=== PATIENT | female | born 1965 | race Caucasian/White ===

== ENCOUNTER → 2016-07-14 | Outpatient (CLI) | payer OTHER ==
--- NOTE | 2016-07-14 15:11 | REPMRS ---
Patient History The patient states she had a clinical breast exam in 06/2016. Family history of unknown cancer in sister at age 54 and breast cancer in sister at age 59. Digital Woman Screen Mammo: July 14, 2016 - Exam #: [id number] Bilateral CC and MLO view(s) were taken. Technologist: Laney Haynes, Technologist Prior study comparison: May 06, 2015, digital woman screen mammo performed at [facility]. May 01, 2014, digital woman screen mammo performed at [facility]. April 09, 2013, digital woman screen mammo performed at [facility]. FINDINGS: There are scattered fibroglandular densities. There has been no change in the appearance of the mammogram from the prior studies. There is a mild amount of scattered fibroglandular density which is fairly symmetric. There is no interval development of dominant mass, architectural distortion, or clustered microcalcification suggestive of malignancy. ASSESSMENT: BI-RADS/ACR category 1 mammogram. Negative. Recommendation Routine screening mammogram in 1 year (for women over age 40). This mammogram was interpreted with the aid of an FDA-approved computer-aided dectection system. Electronically Signed By: Yuan Stephen MD 07/14/16 [id number]
== END ==
LOC: M WHC 14:08
PROVIDERS: ATTEND Nurse Practitioner Women's Health
DX: Z12.31 Encounter for screening mammogram for malignant neoplasm of breast (principal)

== ENCOUNTER → 2016-07-14 | Outpatient (REF) | payer OTHER | LOC: M SFHCWAGY 16:14 | PROVIDERS: ATTEND Nurse Practitioner Women's Health | DX: Z12.31 Encounter for screening mammogram for malignant neoplasm of breast (principal); Z12.4 Encounter for screening for malignant neoplasm of cervix ==

== ENCOUNTER → 2016-10-05 | Outpatient (REF) | LOC: M LAB 16:11 | PROVIDERS: ATTEND Nurse Practitioner Adult Health | DX: Z02.1 Encounter for pre-employment examination (principal) ==

== ENCOUNTER → 2017-02-17 | Outpatient (CLI) | payer BC ==
--- NOTE | 2017-02-17 16:18 | REP ---
RIGHT FOOT, FOUR VIEWS: HISTORY: Plantar fascial fibromatosis. There is no acute fracture or dislocation. The joint spaces are normal in appearance. A small osteophyte is present on the inferior calcaneus. IMPRESSION: There is no acute fracture or dislocation. Signed by Luis Ramon MD 02/17/2017 04:26 P
== END ==
LOC: M ADAMS 09:57
PROVIDERS: ATTEND Physician Assistant Medical
DX: M72.2 Plantar fascial fibromatosis (principal)

== ENCOUNTER → 2017-07-12 | Outpatient (REF) | payer BC | LOC: M SFHCWAGY 15:17 | DX: Z12.4 Encounter for screening for malignant neoplasm of cervix (principal) | CPT/HCPCS: G0123 ==

== ENCOUNTER → 2017-07-12 | Outpatient (CLI) | payer BC | LOC: M WHC 14:57 | DX: Z12.31 Encounter for screening mammogram for malignant neoplasm of breast (principal) | CPT/HCPCS: 77067 ==

== ENCOUNTER 2018-01-16 12:36 | Emergency (ER) | payer OTHER, BC ==
[2018-01-16] MEDS: IBUPROFEN 600 MG TAB PO (13:00)
== END 2018-01-16 13:44 | disposition home or self-care (01) ==
LOC: M ED 12:36
DX: S90.32XA Contusion of left foot, initial encounter (principal); W20.8XXA Other cause of strike by thrown, projected or falling object, initial encounter; Y92.59 Other trade areas as the place of occurrence of the external cause; Y99.0 Civilian activity done for income or pay
CPT/HCPCS: 73630

== ENCOUNTER → 2018-08-27 | Outpatient (CLI) | payer BC ==
--- NOTE | 2018-08-27 17:26 | REPMRS ---
Patient History The patient states she had a clinical breast exam in 08/2018. Family history of breast cancer at age 59 in sister. No Hormone Replacement Therapy Digital Woman Screen Mammo: August 27, 2018 - Exam #: [id number] Bilateral CC and MLO view(s) were taken. Technologist: Laney Haynes, Technologist Prior study comparison: July 12, 2017, digital woman screen mammo performed at [facility]. July 14, 2016, digital woman screen mammo performed at [facility]. FINDINGS: There are scattered fibroglandular densities. There has been no change in the appearance of the mammogram from the prior studies. There is a mild amount of residual fibroglandular tissue which is fairly symmetric. There is no interval development of dominant mass, architectural distortion, or clustered microcalcification suggestive of malignancy. There are scattered, small, benign calcifications of doubtful clinical significance. Scattered lymph nodes are seen in the right axilla. There is a benign appearing intramammary node in the upper outer quadrant of the right breast. 3-D tomosynthesis shows no additional findings. No significant changes when compared with prior studies. Assessment: BI-RADS/ACR category 2 mammogram. Benign Findings. Recommendation Routine screening mammogram in 1 year (for women over age 40). This mammogram was interpreted with the aid of an FDA-approved computer-aided dectection system. A. Negative x-ray reports should not delay biopsy if a dominant or clinically suspicious mass is present. B. Four to eight percent of cancers are not identified by mammography. C. Adenosis and dense breast may obscure an underlying neoplasm. With Tyrer Cuzick lifetime risk assessment of 20.1% patient should be considered for additional screening with breast MRI which is suggested for patients with risk assessments in the range of 20-25% or greater. Electronically Signed By: Alexandre Robison MD 08/27/18 [id number]
== END ==
LOC: M WHC 10:32
PROVIDERS: ATTEND Nurse Practitioner Women's Health
DX: Z12.31 Encounter for screening mammogram for malignant neoplasm of breast (principal); Z80.3 Family history of malignant neoplasm of breast

== ENCOUNTER → 2018-08-27 | Outpatient (REF) | payer BC ==
[2018-08-29 14:14] LABS: HPV HYBRID CAPTURE II Negative (Negative)
== END ==
LOC: M SFHCWAGY 10:49
PROVIDERS: ATTEND Nurse Practitioner Women's Health
DX: Z12.4 Encounter for screening for malignant neoplasm of cervix (principal)
CPT/HCPCS: 87624; G0123

== ENCOUNTER → 2019-09-02 | Outpatient (CLI) | payer BC ==
--- NOTE | 2019-09-02 10:11 | REPMRS ---
Patient History The patient states she had a clinical breast exam in August 2019. Family history of breast cancer at age 59 in sister, cervical cancer at age 56 in sister. No Hormone Replacement Therapy 3D TOMOSYNTHESIS WAS PERFORMED. [facility] lifetime risk for breast cancer is 19.7%. Digital Woman Screen Mammo: September 02, 2019 - Exam #: [id number] Bilateral CC and MLO view(s) were taken. Technologist: Marsha Kumar, Technologist Prior study comparison: August 27, 2018, bilateral digital woman screen mammo performed at [facility]. July 12, 2017, digital woman screen mammo performed at [facility]. FINDINGS: The breast tissue is heterogeneously dense. This may lower the sensitivity of mammography. There has been no change in the appearance of the mammogram from the prior studies. There is a moderate amount of residual fibroglandular tissue which is fairly symmetric. There is no interval development of dominant mass, areas of architectural distortion, or clustered microcalcification typical of malignancy. Assessment: BI-RADS/ACR category 1 mammogram. Negative Mammogram. Recommendation Routine screening mammogram in 1 year (for women over age 40). This mammogram was interpreted with the aid of an FDA-approved computer-aided dectection system. Electronically Signed By: Miguel Mcfadden MD 09/02/19 [id number]
== END ==
LOC: M WHC 09:20
PROVIDERS: ATTEND Nurse Practitioner Women's Health
DX: Z12.31 Encounter for screening mammogram for malignant neoplasm of breast (principal); Z80.3 Family history of malignant neoplasm of breast

== ENCOUNTER → 2019-09-02 | Outpatient (REF) | payer BC | LOC: M SFHCWAGY 13:28 | PROVIDERS: ATTEND Nurse Practitioner Women's Health | DX: Z12.4 Encounter for screening for malignant neoplasm of cervix (principal) ==

== ENCOUNTER 2020-01-02 12:27 | Emergency (ER) | payer BC, OTHER ==
[~2020-01-02] VITALS: Ht 152.4 cm; Wt 74.1 kg
[2020-01-02 13:55] VITALS: BP 134/65
--- NOTE | 2020-01-02 15:28 | REP ---
RIGHT KNEE, FIVE VIEWS: Five views of the right knee performed. There is no acute fracture or dislocation. There is mild diffuse joint space narrowing with subchondral sclerosis and mild spurring. I do not see a significant joint effusion. IMPRESSION: Degenerative changes. No evidence of fracture or dislocation. Electronically Signed by Miguel Mcfadden MD 01/05/2020 11:43 P
== END 2020-01-02 13:59 | disposition home or self-care (01) ==
LOC: M ED 12:27
DX: M25.561 Pain in right knee (principal)

== ENCOUNTER → 2020-06-20 | Outpatient (CLI) | payer SELFPAY | LOC: M LABSMTC 08:21 | PROVIDERS: ATTEND Pediatrics | DX: Z20.828 Contact with and (suspected) exposure to other viral communicable diseases (principal) ==

== ENCOUNTER → 2020-09-10 | Outpatient (CLI) | payer OTHER ==
--- NOTE | 2020-09-10 17:05 | REPMRS ---
Patient History The patient states she had a clinical breast exam in 08/2020 Patient is postmenopausal. Family history of breast cancer at age 59 in sister, unknown cancer at age 56 in sister. No Hormone Replacement Therapy Digital Woman Screen Mammo: September 10, 2020 - Exam #: [id number] Bilateral CC and MLO view(s) were taken. Technologist: Mariann Carson, Technologist Prior study comparison: September 02, 2019, bilateral digital woman screen mammo performed at [facility]. August 27, 2018, bilateral digital woman screen mammo performed at [facility]. July 12, 2017, digital woman screen mammo performed at [facility]. FINDINGS: There are scattered fibroglandular densities. The Volpara volumetric breast density category is:B. There is a stable intramammary lymph node visible in each breast unchanged. There has been no change in the appearance of the mammogram from the prior studies. There is a mild amount of scattered fibroglandular density which is fairly symmetric. There is no interval development of dominant mass, architectural distortion, or grouped microcalcification suggestive of malignancy. 3-D tomosynthesis shows no additional findings. Assessment: BI-RADS/ACR category 2 mammogram. Benign Findings. Recommendation Breast MRI of both breasts in 6 months. Routine screening mammogram of both breasts in 1 year (for women over age 40). This patient's [facility] Lifetime Breast Cancer Risk is estimated at 20.7 %. Annual screening Breast MRI scanniing is recommended for patient's whose lifetime risk assessment is over 20%. This mammogram was interpreted with the aid of an FDA-approved computer-aided dectection system. Electronically Signed By: Yuan Stephen MD 09/10/20 [id number]
== END ==
LOC: M WHC 15:11
PROVIDERS: ATTEND Nurse Practitioner Women's Health
DX: Z12.31 Encounter for screening mammogram for malignant neoplasm of breast (principal); Z80.3 Family history of malignant neoplasm of breast

== ENCOUNTER → 2020-09-10 | Outpatient (REF) | payer OTHER | LOC: M SFHCWAGY 10:05 | PROVIDERS: ATTEND Nurse Practitioner Women's Health | DX: Z12.4 Encounter for screening for malignant neoplasm of cervix (principal); Z77.9 Other contact with and (suspected) exposures hazardous to health | CPT/HCPCS: 87624; G0123 ==

== ENCOUNTER → 2020-09-24 | Outpatient (CLI) | payer OTHER ==
--- NOTE | 2020-09-24 11:53 | REP ---
INDICATION: PAIN. COMPARISON: Right knee, 01/02/2020. TECHNIQUE: There are four views of each knee FINDINGS: Right knee: There is patellofemoral osteoarthritis with significant narrowing of the lateral compartment and slight lateral subluxation of the patella. The mediolateral compartments are unremarkable. There is no effusion. Mineralization is normal. There are no calcifications. Left knee: There is patellofemoral osteoarthritis with significant narrowing of the lateral compartment and slight lateral subluxation of the patella. The medial and lateral compartments are unremarkable. There is no effusion. Mineralization is normal. There are no calcifications. IMPRESSION: Bilateral patellofemoral osteoarthritis. <Electronically signed by Miguel Dacosta > 09/24/20 [id number]
--- NOTE | 2020-09-24 11:56 | REP ---
INDICATION: PAIN. COMPARISON: None. TECHNIQUE: Standing AP and lateral views: FINDINGS: Mineralization is normal. The mortise is symmetric. There is no joint space narrowing. There is no plain film evidence of tarsal coalition. No joint effusion. There is a calcaneal plantar spur. IMPRESSION: Essentially negative AP and lateral standing views of the right ankle. <Electronically signed by Miguel Dacosta > 09/24/20 [id number]
--- NOTE | 2020-09-24 11:58 | REP ---
INDICATION: PAIN. COMPARISON: 10/31/2019. TECHNIQUE: There are three views. FINDINGS: Mineralization and joint spaces are unremarkable. There are no calcifications or foreign bodies. No fracture or dislocation. There is a calcaneal plantar spur, unchanged. IMPRESSION: Calcaneal plantar spur, otherwise negative right foot. <Electronically signed by Miguel Dacosta > 09/24/20 [id number]
== END ==
LOC: M SOG 10:36
PROVIDERS: ATTEND Orthopaedic Surgery Sports Medicine
DX: M17.0 Bilateral primary osteoarthritis of knee (principal); M21.41 Flat foot [pes planus] (acquired), right foot; M77.31 Calcaneal spur, right foot

== ENCOUNTER → 2021-02-05 | Outpatient (CLI) | payer OTHER ==
[~2021-02-05] MED LIST: ECOT81TA5 PO; PROBCAP14 PO
== END ==
LOC: M LABSMTC 12:46
PROVIDERS: ATTEND Anesthesiology
DX: Z01.812 Encounter for preprocedural laboratory examination (principal); Z11.52 Encounter for screening for COVID-19

== ENCOUNTER → 2021-03-24 | Outpatient (CLI) | payer OTHER | LOC: M LABSMTC 09:38 | PROVIDERS: ATTEND Anesthesiology | DX: Z01.812 Encounter for preprocedural laboratory examination (principal); Z20.822 Contact with and (suspected) exposure to COVID-19 ==

== ENCOUNTER 2021-03-29 12:06 | Day surgery (SDC) | payer OTHER ==
[~2021-03-29] VITALS: Ht 152.4 cm; Wt 73.0 kg
[~2021-03-29 12:06] MED LIST changes: +NS 1,000 ML IV ONE
[2021-03-29] MEDS ORDERED: propofoL 200 MG/20 ML VIAL As Ordered ONE (13:35)
--- NOTE | 2021-03-29 13:48 | ROOR ---
Patient Name: Tash Salhe Procedure Date: 03/29/2021 1:26 PM Date of : 1965 Age: 55 Room: [facility] Gender: Female Note Status: Finalized Procedure: Total Colonoscopy to Cecum Indications: Colon cancer screening in patient at increased risk: Family history of 1st-degree relative with colon polyps, Last colonoscopy: 2015 Providers: Aaron Buckley MD Referring MD: SONJA BETANCUR DO Requesting Provider: Medicines: Monitored Anesthesia Care Complications: No immediate complications. Procedure: Pre-Anesthesia Assessment: - The heart rate, respiratory rate, oxygen saturations, blood pressure, adequacy of pulmonary ventilation, and response to care were monitored throughout the procedure. The Colonoscope was introduced through the anus and advanced to the cecum, identified by appendiceal orifice and ileocecal valve. The colonoscopy was performed without difficulty. The patient tolerated the procedure well. The quality of the bowel preparation was excellent. Findings: The perianal and digital rectal examinations were normal. Non-bleeding internal hemorrhoids were found during retroflexion. The hemorrhoids were small and Grade I (internal hemorrhoids that do not prolapse). No other significant abnormalities were identified in a careful examination of the remainder of the colon. The exam was otherwise without abnormality on direct and retroflexion views. Impression: - Non-bleeding internal hemorrhoids. - The examination was otherwise normal on direct and retroflexion views. - No specimens collected. - The exam was otherwise normal to the cecum. Recommendation: - Patient has a contact number available for emergencies. The signs and symptoms of potential delayed complications were discussed with the patient. Return to normal activities tomorrow. Written discharge instructions were provided to the patient. - High fiber diet. - Discharge patient to home. - Continue present medications. - Repeat colonoscopy in 5 years for screening purposes. - Return to referring physician. - The findings and recommendations were discussed with the patient. Procedure Code(s): --- Professional --- G0105, Colorectal cancer screening; colonoscopy on individual at high risk Diagnosis Code(s): --- Professional --- Z83.71, Family history of colonic polyps K64.0, First degree hemorrhoids CPT copyright 2019 [employer] [place] [employer]. All rights reserved. The codes documented in this report are preliminary and upon press washer review may be revised to meet current compliance requirements. Aaron Buckley MD Aaron Buckley MD 03/29/2021 1:48:02 PM Electronically signed by Aaron Buckley MD Number of Addenda: 0 Note Initiated On: 03/29/2021 1:26 PM Estimated Blood Loss: Estimated blood loss: none.
[2021-03-29 14:28] VITALS: BP 125/82
== END 2021-03-29 14:30 | disposition home or self-care (01) ==
LOC: M OPP 12:06
PROVIDERS: ATTEND Internal Medicine Gastroenterology
DX: Z12.11 Encounter for screening for malignant neoplasm of colon (principal); Z83.71 Family history of colonic polyps; K64.0 First degree hemorrhoids; Z79.82 Long term (current) use of aspirin

== ENCOUNTER → 2021-09-20 | Outpatient (REF) | payer OTHER ==
[~2021-09-20] MED LIST changes: -NS 1,000 ML IV ONE
== END ==
LOC: M SFHCWAGY 17:40
PROVIDERS: ATTEND Obstetrics & Gynecology
DX: Z01.419 Encounter for gynecological examination (general) (routine) without abnormal findings (principal)

== ENCOUNTER → 2021-09-20 | Outpatient (CLI) | payer OTHER, SELFPAY | LOC: M WHC 14:35 | PROVIDERS: ATTEND Obstetrics & Gynecology | DX: Z12.31 Encounter for screening mammogram for malignant neoplasm of breast (principal); Z15.01 Genetic susceptibility to malignant neoplasm of breast; Z80.3 Family history of malignant neoplasm of breast ==

== ENCOUNTER → 2021-12-24 | Outpatient (CLI) | payer OTHER | LOC: M RAD 15:58 → M PLALAB 15:58 | PROVIDERS: ATTEND Physician Assistant | DX: M25.571 Pain in right ankle and joints of right foot (principal) ==

== ENCOUNTER → 2022-10-07 | Outpatient (REF) | payer OTHER | LOC: M SFHCWAGY 17:23 | PROVIDERS: ATTEND Obstetrics & Gynecology | DX: R87.610 Atypical squamous cells of undetermined significance on cytologic smear of cervix (ASC-US) (principal) | CPT/HCPCS: 87624; G0123 ==

== ENCOUNTER → 2022-10-07 | Outpatient (CLI) | payer OTHER | LOC: M WHC 14:06 | PROVIDERS: ATTEND Obstetrics & Gynecology | DX: Z12.31 Encounter for screening mammogram for malignant neoplasm of breast (principal) ==

== ENCOUNTER → 2023-11-03 | Outpatient (REF) | payer OTHER ==
[2023-11-03 15:42] LABS: HEMATOCRIT 39.9 % (36.0-47.0); HEMOGLOBIN 13.4 g/dl (12.0-15.5); MEAN CORPUSCULAR HEMOGLOBIN 29.8 pg (27.0-33.0); MEAN CORPUSCULAR HGB CONC 33.6 g/dl (32.0-36.5); MEAN CORPUSCULAR VOLUME 88.7 fl (80.0-96.0); PLATELET COUNT, AUTOMATED 296 10^3/uL (150-450)
[2023-11-03 15:46] LABS: APPEARANCE, URINE CLEAR (CLEAR); BACTERIA, URINE AUTO NEGATIVE (NEGATIVE); BILIRUBIN, URINE AUTO NEGATIVE (NEGATIVE); BLOOD, URINE BLOOD NEGATIVE (NEGATIVE); COLOR, URINE YELLOW (YELLOW); GLUCOSE, URINE (UA) AUTO NEGATIVE (NEGATIVE); KETONE, URINE AUTO NEGATIVE (NEGATIVE); LEUKOCYTE ESTERASE, URINE AUTO NEGATIVE (NEGATIVE); MUCUS, URINE SMALL (NEGATIVE); NITRITE, URINE AUTO NEGATIVE (NEGATIVE); PROTEIN, URINE AUTO NEGATIVE (NEGATIVE); RBC, URINE AUTO 1 /HPF (0-3); SPECIFIC GRAVITY URINE AUTO 1.011 (1.002-1.035); SQUAMOUS EPITHELIAL CELL UR AU 3 /HPF (0-6); UROBILINOGEN, URINE AUTO 0.2 mg/dL (0.0-2.0); WBC, URINE AUTO 1 /HPF (0-3)
[2023-11-03 16:10] LABS: ALKALINE PHOSPHATASE 127 U/L (46-116); ALT/SGPT 22 U/L (7.0-40); AST/SGOT 22 U/L (<34); BILIRUBIN,TOTAL 0.5 MG/DL (0.3-1.2); BLOOD UREA NITROGEN 17 MG/DL (9-23); CALCIUM LEVEL 8.9 MG/DL (8.5-10.1); CARBON DIOXIDE LEVEL 24 MMOL/L (20-31); CHLORIDE LEVEL 106 MMOL/L (98-107); CHOLESTEROL LEVEL 206 MG/DL (<200); CREATININE FOR GFR 0.62 MG/DL (0.55-1.30); GLOMERULAR FILTRATION RATE > 60.0 (>51); GLUCOSE, FASTING 113 MG/DL (60-100); HDL CHOLESTEROL 57.2 MG/DL (>40); LDL CHOLESTEROL 135.2 MG/DL (<100); NON-HDL-C 148.8 MG/DL; POTASSIUM SERUM 4.1 MMOL/L (3.5-5.1); SODIUM LEVEL 137 MMOL/L (136-145); TRIGLYCERIDES LEVEL 68 MG/DL (<150)
[2023-11-03 16:12] LABS: THYROID STIMULATING HORMONE 2.167 uIU/ML (0.55-4.78)
[2023-11-06 07:25] LABS: WHITE BLOOD COUNT 6.8 10^3/uL (4.0-10.0)
== END ==
LOC: M LAB REF 14:51
PROVIDERS: ATTEND Physician Assistant
DX: E78.5 Hyperlipidemia, unspecified (principal)

== ENCOUNTER → 2023-11-21 | Outpatient (CLI) | payer OTHER | LOC: M WHC 14:40 | PROVIDERS: ATTEND Obstetrics & Gynecology | DX: Z12.31 Encounter for screening mammogram for malignant neoplasm of breast (principal) ==

== ENCOUNTER → 2024-05-09 | Outpatient (CLI) | payer OTHER | LOC: M SLEEP HO 10:15 | PROVIDERS: ATTEND Internal Medicine Critical Care Medicine | DX: G47.30 Sleep apnea, unspecified (principal) ==

== ENCOUNTER → 2024-05-24 | Outpatient (REF) | payer OTHER ==
[2024-05-24 14:20] LABS: HEMATOCRIT 40.7 % (36.0-47.0); HEMOGLOBIN 13.6 g/dl (12.0-15.5); MEAN CORPUSCULAR HEMOGLOBIN 29.8 pg (27.0-33.0); MEAN CORPUSCULAR HGB CONC 33.4 g/dl (32.0-36.5); MEAN CORPUSCULAR VOLUME 89.3 fl (80.0-96.0); PLATELET COUNT, AUTOMATED 277 10^3/uL (150-450); RED BLOOD COUNT 4.56 10^6/uL (4.00-5.40); WHITE BLOOD COUNT 3.8 10^3/uL (4.0-10.0)
[2024-05-24 14:36] LABS: HEMOGLOBIN A1c 5.8 % (4.0-6.0)
[2024-05-24 14:42] LABS: ALBUMIN 3.8 G/DL (3.2-5.2); ALKALINE PHOSPHATASE 113 U/L (35-104); ALT/SGPT 22 U/L (7.0-40); AST/SGOT 16 U/L (<34); BILIRUBIN,TOTAL 0.3 MG/DL (0.3-1.2); BLOOD UREA NITROGEN 20 MG/DL (9-23); CALCIUM LEVEL 9.3 MG/DL (8.5-10.1); CARBON DIOXIDE LEVEL 25 MMOL/L (20-31); CHLORIDE LEVEL 107 MMOL/L (98-107); CHOLESTEROL LEVEL 212 MG/DL (<200); CHOLESTEROL RISK RATIO 3.75 (<5); CREATININE FOR GFR 0.54 MG/DL (0.55-1.30); GLOMERULAR FILTRATION RATE > 60.0 (>51); GLUCOSE, FASTING 109 MG/DL (60-100); HDL CHOLESTEROL 56.5 MG/DL (>40); LDL CHOLESTEROL 141.1 MG/DL (<100); NON-HDL-C 155.5 MG/DL; POTASSIUM SERUM 4.4 MMOL/L (3.5-5.1); SODIUM LEVEL 139 MMOL/L (136-145); TRIGLYCERIDES LEVEL 72 MG/DL (<150)
[2024-05-24 14:44] LABS: TOTAL 25(OH) VITAMIN D 36.4 NG/ML (20.0-100.0)
== END ==
LOC: M LAB REF 12:34
PROVIDERS: ATTEND Registered Nurse
DX: Z00.00 Encounter for general adult medical examination without abnormal findings (principal); E78.2 Mixed hyperlipidemia; R73.03 Prediabetes; E55.9 Vitamin D deficiency, unspecified

== ENCOUNTER → 2024-07-19 | Outpatient (CLI) | payer OTHER | LOC: M SLEEP 20:00 | PROVIDERS: ATTEND Internal Medicine Critical Care Medicine | DX: G47.33 Obstructive sleep apnea (adult) (pediatric) (principal) ==

== ENCOUNTER → 2024-12-31 | Outpatient (CLI) | payer OTHER | LOC: M WHC 08:59 | PROVIDERS: ATTEND Obstetrics & Gynecology | DX: Z12.31 Encounter for screening mammogram for malignant neoplasm of breast (principal); R92.323 Mammographic fibroglandular density, bilateral breasts ==

== ENCOUNTER → 2025-01-07 | Outpatient (CLI) | payer OTHER | LOC: M RAD 15:45 | PROVIDERS: ATTEND Registered Nurse | DX: E07.89 Other specified disorders of thyroid (principal) ==